=== PATIENT | female | born 1945 | race Caucasian/White ===

== ENCOUNTER 2017-01-15 13:33 | Emergency (ER) | payer MEDICARE, BC ==
--- NOTE | 2017-01-15 15:30 | UC ---
Respiratory Complaint HPI - HPI Summary HPI Summary: 1 1/2 weeks congestion with cough x 4 days with coughing fits. - History of Current Complaint Chief Complaint: UCGeneralIllness Stated Complaint: COUGH Time Seen by Provider: 01/15/17 15:22 Hx Obtained From: Patient Onset/Duration: Sudden Onset, Worse Since - last 4 days. Timing: Constant Severity Initially: Mild Severity Currently: Moderate Character: Cough: Nonproductive Associated Signs And Symptoms: Positive: Dyspnea - with coughing, Nasal Congestion, Hoarseness Related History: Seasonal Allergies - Risk Factors Pulmonary Embolism Risk Factors: Smoking Cardiac Risk Factors: CAD Pseudomonas Risk Factors: Negative - Allergies/Home Medications Allergies/Adverse Reactions: Allergies Allergy/AdvReac Type Severity Reaction Status Date / Time Niacin Allergy Hives Verified 01/15/17 13:56 Home Medications: Home Medications Amlodipine Besylate [Norvasc 10 mg tab] 10 mg PO DAILY 01/15/17 [History Confirmed 01/15/17] Aspirin [Aspirin 81 MG TAB] 162 mg PO BEDTIME 01/15/17 [History Confirmed ] Clopidogrel TAB* [Plavix TAB*] 75 mg PO DAILY 01/15/17 [History Confirmed ] Dapagliflozin Propanediol [Farxiga] 5 mg PO DAILY 01/15/17 [History Confirmed ] Gabapentin CAP(*) [Neurontin 100 mg CAP(*)] 100 mg PO BID 01/15/17 [History Confirmed 01/15/17] GuaiFENesin DM* [Robitussin DM*] 5 ml PO Q6H PRN 01/15/17 [History Confirmed 11/24] Isosorbide Mononitrate ER TAB* [Imdur ER TAB*] 120 mg PO DAILY 01/15/17 [ History Confirmed 01/15/17] Lisinopril [Zestril 20 MG-] 20 mg PO DAILY 01/15/17 [History Confirmed 01/15/17] Meloxicam 7.5 mg PO DAILY 01/15/17 [History Confirmed 01/15/17] Menthol (Mouth-Throat) [Cough Drops] 7 mg MT DAILY PRN 01/15/17 [History Confirmed 01/15/17] Nitroglycerin TAB 0.4 MG* 0.4 mg SL . NEEDED PRN 01/15/17 [History Confirmed 01/15/17] Rosuvastatin Calcium 20 mg PO DAILY 01/15/17 [History Confirmed 01/15/17] Sitaglip/[id number]/1000(NR) [Janumet XR 100/1000 (NF)] 1 tab PO DAILY [History Confirmed 01/15/17] PMH/Surg Hx/FS Hx/Imm Hx Endocrine History: Diabetes Cardiovascular History: Cardiac Disease - Surgical History Surgical History: Yes Surgery Procedure, Year, and Place: OPEN HEART SX - Family History Known Family History: Positive: Unknown - Adopted - Social History Occupation: Retired Lives: With Family Alcohol Use: Occasionally Substance Use Type: None Smoking Status (MU): Former Smoker Have You Smoked in the Last Year: Yes When Did the Patient Quit Smoking/Using Tobacco: 1.5 WKS AGO Cessation Counseling: Patient Advised to Stop Review of Systems ENT: Sore Throat, Sinus Congestion Respiratory: Cough Is Patient Immunocompromised?: No All Other Systems Reviewed And Are Negative: Yes Physical Exam Triage Information Reviewed: Yes Appearance: Well-Appearing, No Pain Distress, Well-Nourished Vital Signs: Initial Vital Signs Temp 98 F 01/15/17 13:49 Pulse 74 01/15/17 13:49 Resp 16 01/15/17 13:49 BP 121/59 01/15/17 13:49 Pulse Ox 99 01/15/17 13:49 Vital Signs Reviewed: Yes Eyes: Positive: Conjunctiva Inflamed - OU ENT: Positive: Pharynx normal, TMs normal Neck exam: Normal Respiratory: Positive: Decreased breath sounds, Wheezing - expiratory wheeze with coughing Cardiovascular Exam: Normal Musculoskeletal Exam: Normal Neurological Exam: Normal Neurological: Positive: Alert Psychological Exam: Normal Skin Exam: Normal UC Diagnostic Evaluation - Laboratory O2 Sat by Pulse Oximetry: 99 Respiratory Course/Dx - Differential Dx/Diagnosis Differential Diagnosis/HQI/PQRI: Asthma, Exacerbation Of COPD, Lower Resp Infection, Sinusitis Provider Diagnoses: exacerbation of COPD Discharge - Discharge Plan Condition: Stable Disposition: HOME Prescriptions: Cefuroxime Axetil [Ceftin 500 MG TAB] 500 mg PO BID #14 tab predniSONE TAB* [Deltasone TAB*] 20 mg PO DAILY #18 tab Patient Education Materials: Bronchospasm (ED), Prednisone (By mouth), COPD ( Chronic Obstructive Pulmonary Disease) (ED), Cefuroxime (By mouth) Additional Instructions: Smoking Cessation Tricks. 1. Cut down by 1 cigarette per day every 2-3 days. Write the number of smokes for that day on the calendar. 2. Identify triggers to smoking: after meals, on the phone, in the car, with coffee, on breaks at work, etc. 3. Formulate a plan with a behavior to replace the smoking. Fireballs in the car , doodle pad on the phone, flavored creamer for the coffee, go for a walk after a meal or on break at work. 4. For stress smokes do deep breathing relaxation. Breath deep in through the nose hold the breath in for a few seconds then breath out slowly through the mouth.
[2017-01-15 15:41] VITALS: BP 124/64
== END 2017-01-15 15:47 | disposition home or self-care (01) ==
LOC: UCCORT 13:33
DX: J44.1 Chronic obstructive pulmonary disease with (acute) exacerbation (principal); E11.9 Type 2 diabetes mellitus without complications; J30.2 Other seasonal allergic rhinitis; Z87.891 Personal history of nicotine dependence; Z88.8 Allergy status to other drugs, medicaments and biological substances
CPT/HCPCS: 99202; G0463